=== PATIENT | male | born 1980 | race African-American/Black ===

== ENCOUNTER 2017-01-23 22:07 | Emergency (ER) | payer OTHER, SELFPAY ==
[~2017-01-23] VITALS: Ht 167.6 cm; Wt 57.6 kg
[2017-01-23 22:08] VITALS: BP 119/67
[2017-01-23] MEDS ORDERED: Norco 5mg/325mg tab ORAL ONE (22:45)
[2017-01-23 22:48] LABS: APPEARANCE,URINE CLEAR; KETONES,URINE NEGATIVE (NEGATIVE); LEUKOCYTE ESTERASE ,URINE NEGATIVE (NEGATIVE); NITRITE,URINE NEGATIVE (NEGATIVE); PH,URINE 7 (4.5-8.0); PROTEIN,URINE 3+ (NEGATIVE); UROBILINOGEN,URINE 8 MG/DL (0.0-1.0)
[2017-01-23 23:00] LABS: RBC,URINE 0-2 /HPF (0 - 0)
[2017-01-23 23:01] LABS: WBC,URINE 0 /HPF (0 - 0)
--- NOTE | 2017-01-23 23:06 | Emergency Room Report ---
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 He has previous left shoulder surgery. He presents with chief complaint of generalized body pain and shoulder pain. Pain is 10 out of 10. He said is out of his medication. Denies any fever chills denies any nausea vomiting. Nothing made it better. Any movement made it worse Allergies: Coded Allergies: ASPIRIN (Verified Allergy, Unknown, 12/17/09) MORPHINE (Verified Allergy, Unknown, 12/17/09) PENICILLINS (Verified Allergy, Unknown, 12/17/09) SULFA (SULFONAMIDE ANTIBIOTICS) (Verified Allergy, Unknown, 12/17/09) Patient History Past Medical History: see triage record, old chart reviewed Past Surgical History: other Pertinent Family History: none Social History: Denies: smoking Immunizations: other Reviewed Nursing Documentation: PMH: Agreed, PSxH: Agreed Review of Systems Eye: Denies: blurred vision, eye pain ENT: Denies: ear pain, nose congestion, throat swelling Respiratory: Denies: cough, shortness of breath Cardiovascular: Denies: chest pain, palpitations Gastrointestinal: Denies: abdominal pain, diarrhea, nausea, vomiting Musculoskeletal: Reports: joint pain, Denies: back pain Skin: Denies: rash Neurological: Denies: headache, numbness Endocrine: Denies: increased thirst, increased urine Hematologic/Lymphatic: Denies: easy bruising All Other Systems: negative except mentioned in HPI Physical Exam Vital Signs Date Time Temp Pulse Resp B/P Pulse Ox O2 Delivery O2 Flow Rate FiO2 01/23/17 21:55 98.8 84 18 119/67 98 vitals normal Sp02 EP Interpretation: reviewed, normal General Appearance: Chronically Ill Head: normocephalic, atraumatic Eyes: bilateral eye EOMI, bilateral eye PERRL ENT: hearing grossly normal, normal pharynx Neck: full range of motion, supple, no meningismus Respiratory: chest non-tender, lungs clear, normal breath sounds Cardiovascular #1: regular rate, rhythm, no murmur Gastrointestinal: normal bowel sounds, non tender, no mass, no organomegaly, no bruit, non-distended Musculoskeletal: back normal, other - Patient is screaming in pain with any touch of his body. Neurologic: alert, oriented x3 Psychiatric: mood/affect normal Skin: warm/dry Medical Decision Making Diagnostic Impression: Primary Impression: Sickle cell anemia with crisis Additional Impressions: Sickle cell anemia Qualified Codes: D57.00 - Hb-SS disease with crisis, unspecified Opioid dependence Qualified Codes: F11.20 - Opioid dependence, uncomplicated ER Course Patient presents with sickle cell pain. No evidence of aplastic crisis. I spoke with the doctor at [facility]. His hemoglobin on January 19 was 7.9. In the month of December he has 6 different narcotic prescription from 6 different providers. He also been to several different hospitals. I suspect a strong opioid dependency here. No evidence of infection or aplastic crisis. Anemia is at baseline. No need for emergent blood transfusion. He complaining of shoulder pain requiring surgery. This can be done as an outpatient. no evidence of active bleeding or dehydration. Patient sleeping comfortably. Every time I walk by he start complaining of pain. Lab Results Impression labs unremarkable Last Vital Signs Date Time Temp Pulse Resp B/P Pulse Ox O2 Delivery O2 Flow Rate FiO2 01/23/17 21:55 98.8 84 18 119/67 98 Status: improved Disposition: HOME, SELF-CARE Condition: Stable Additional Instructions: followup with your Dr. in 7 days. Return for worsening symptoms. followup your DrBetty for refills on your medication. LIZZIE THOMAS M.D. Jan 23, 2017 23:06
[2017-01-23 23:38] LABS: BASOPHILS % (AUTO) 0.9 % (0.0-2.0); LYMPHOCYTES % (AUTO) 54.7 % (20.0-45.0); MEAN CORPUSCULAR HEMOGLOBIN 34.6 PG (27.0-31.0); MEAN CORPUSCULAR HGB CONC 33.6 G/DL (32.0-36.0); MEAN CORPUSCULAR VOLUME 103 FL (80-99); MEAN PLATELET VOLUME 6.7 FL (6.5-10.1); MONOCYTES % (AUTO) 6.2 % (1.0-10.0); NEUTROPHILS % (AUTO) 37.2 % (45.0-75.0); PLATELET COUNT 275 K/UL (150-450); RED BLOOD COUNT 2.92 M/UL (4.70-6.10); RED CELL DISTRIBUTION WIDTH 20.5 % (11.6-14.8); WHITE BLOOD COUNT 13.8 K/UL (4.8-10.8)
[2017-01-23] MEDS ORDERED: IBUPROFEN600 MG ORAL (23:44)
[2017-01-23 23:48] VITALS: BP 123/71
[2017-01-24 00:37] LABS: RETICULOCYTE COUNT 14.5 % (0.0-2.0)
== END 2017-01-23 23:48 | disposition home or self-care (01) ==
LOC: EDBD 22:07 → EMR 22:22
DX: D57.00 Hb-SS disease with crisis, unspecified (principal); F11.20 Opioid dependence, uncomplicated; Z88.6 Allergy status to analgesic agent; Z88.2 Allergy status to sulfonamides; Z88.0 Allergy status to penicillin
CPT/HCPCS: 36415; 80300; 81003; 85025; 85044; 99282

== ENCOUNTER 2017-06-05 15:47 | Emergency (ER) | payer OTHER ==
[~2017-06-05] VITALS: Ht 170.2 cm; Wt 68.0 kg
[~2017-06-05 15:47] MED LIST: IBUPROFEN600 MG ORAL
[2017-06-05 16:47] LABS: BASOPHILS % (AUTO) 1.1 % (0.0-2.0); EOSINOPHILS % (AUTO) 0.4 % (0.0-3.0); LYMPHOCYTES % (AUTO) 50.7 % (20.0-45.0); MEAN CORPUSCULAR HEMOGLOBIN 37.6 PG (27.0-31.0); MEAN CORPUSCULAR HGB CONC 34.9 G/DL (32.0-36.0); MEAN CORPUSCULAR VOLUME 108 FL (80-99); MEAN PLATELET VOLUME 7.3 FL (6.5-10.1); MONOCYTES % (AUTO) 4.6 % (1.0-10.0); NEUTROPHILS % (AUTO) 43.2 % (45.0-75.0); PLATELET COUNT 270 K/UL (150-450); RED BLOOD COUNT 2.22 M/UL (4.70-6.10); RED CELL DISTRIBUTION WIDTH 19.1 % (11.6-14.8); WHITE BLOOD COUNT 16.2 K/UL (4.8-10.8)
[2017-06-05] MEDS: Norco 10mg/325mg tab ORAL ONE (17:07)
[2017-06-05 17:17] LABS: ANION GAP 11 mmol/L (5-15); CARBON DIOXIDE 20 MMOL/L (21-32); CHLORIDE 108 MMOL/L (98-107); CREATININE 0.8 MG/DL (0.55-1.30); GLOMERULAR FILTRATION RATE > 60 mL/min (>60); POTASSIUM 5.4 MMOL/L (3.5-5.1); SODIUM 139 MMOL/L (136-145)
[2017-06-05 17:27] LABS: ALANINE AMINOTRANSFERASE 84 U/L (12-78); ALBUMIN/GLOBULIN RATIO 0.9 (1.0-2.7); ASPARTATE AMINO TRANSFERASE 133 U/L (15-37); TOTAL PROTEIN 7.6 G/DL (6.4-8.2)
[2017-06-05 17:28] LABS: ACETAMINOPHEN < 10 MCG/ML (10-30); ALCOHOL < 3 mg/dL
[2017-06-05 17:31] LABS: BILIRUBIN,DIRECT < 0.1 MG/DL (0.0-0.3)
[2017-06-05] MEDS ORDERED: ZYPREXA10 MG ORAL (17:37)
[2017-06-05] MEDS ORDERED: SEROQUEL200 MG ORAL (17:37)
[2017-06-05] MEDS ORDERED: HYDREA500 MG PO (17:37)
[2017-06-05] MEDS ORDERED: FOLIC ACID1 MG ORAL (17:37)
[2017-06-05 18:00] VITALS: BP 147/85
--- NOTE | 2017-06-05 18:20 | Emergency Room Report ---
History of Present Illness General Chief Complaint: Pain Source: Patient Present Illness HPI The patient is a 37-year-old male with a history of schizophrenia and sickle cell disease presenting for total body pain. He states that pain has been ongoing for the past month. He states that he was initially to be admitted at another hospital due to anemia one month prior but he left for a cigarette break and was told he could not return. He is now having total body pain described as a 10 out of 10 dull ache. Worse with movement. He states that this is typical for his sickle cell crisis. He also admits to some shortness of breath. He states that he is taking all medications as prescribed including temazepam, Hydrea, gabapentin, Seroquel, and Abilify. He denies other symptoms including nausea, vomiting, fever, chills, cough, rash , diarrhea, dizziness Allergies: Coded Allergies: ASPIRIN (Verified Allergy, Unknown, 12/17/09) MORPHINE (Verified Allergy, Unknown, 12/17/09) PENICILLINS (Verified Allergy, Unknown, 12/17/09) SULFA (SULFONAMIDE ANTIBIOTICS) (Verified Allergy, Unknown, 12/17/09) Uncoded Allergies: PENICILLIN (Allergy, Unknown, 06/05/17) SULFA (Allergy, Unknown, 06/05/17) Patient History Past Medical History: see triage record Pertinent Family History: none Reviewed Nursing Documentation: PMH: Agreed, PSxH: Agreed Nursing Documentation-PMH Past Medical History: No History, Except For History Of Psychiatric Problem: Yes - Schizophrenia Review of Systems All Other Systems: negative except mentioned in HPI Physical Exam Vital Signs Date Time Temp Pulse Resp B/P (MAP) Pulse Ox O2 Delivery O2 Flow Rate FiO2 06/05/17 15:43 98.6 84 16 140/80 100 Room Air Sp02 EP Interpretation: reviewed, normal General Appearance: no apparent distress, alert, GCS 15, non-toxic Head: normocephalic Eyes: bilateral eye normal inspection, bilateral eye PERRL ENT: hearing grossly normal, normal pharynx, no angioedema, normal voice Neck: full range of motion, no bony tend, supple/symm/no masses Respiratory: chest non-tender, lungs clear, normal breath sounds, speaking full sentences Cardiovascular #1: regular rate, rhythm, no edema Gastrointestinal: normal bowel sounds, soft, no mass, non-distended Musculoskeletal: digits/nails normal, normal range of motion, pelvis stable, other - L shoulder surgical scar Neurologic: alert, oriented x3, responsive, sensory intact Psychiatric: judgement/insight normal, memory normal, mood/affect normal, no suicidal/homicidal ideation Skin: normal color, no rash, warm/dry, well hydrated Medical Decision Making PA Attestation Dr. Jones is my supervising physician. Patient management was discussed with my supervising physician Diagnostic Impression: Primary Impression: Sickle cell anemia with pain ER Course The patient is a 37-year-old male with a history of schizophrenia and sickle cell disease presenting for total body pain Differential diagnoses considered include but not limited to sickle cell crisis , anemia, gastritis, pancreatitis, appendicitis, among others PE: Vitals stable. Afebrile. NAD RRR Lungs CTA bilat Skin warm and dry. Abd is soft and non tender. Non distended. No guarding. No ecchymosis. The patient has leukocytosis consistent with all previous labs. Hemoglobin and hematocrit shows anemia. Levels are decreased compared to previous labs. Retic count elevated AST/ALT and alk phos elevated Hyperkalemia at 5.4 Dr. Jones has spoken with Dr. Lo who will be admitting the patient for transfer EKG and CXR unremarkable The patient is given IV fluids and pain medication and states that he is feeling much better. He was more relaxed. He'll be transferred in serious but stable condition Laboratory Tests Test 06/05/17 16:35 White Blood Count 16.2 K/UL (4.8-10.8) H Red Blood Count 2.22 M/UL (4.70-6.10) L Hemoglobin 8.4 G/DL (14.2-18.0) L Hematocrit 24.0 % (42.0-52.0) L Mean Corpuscular Volume 108 FL (80-99) H Mean Corpuscular Hemoglobin 37.6 PG (27.0-31.0) H Mean Corpuscular Hemoglobin Concent 34.9 G/DL (32.0-36.0) Red Cell Distribution Width 19.1 % (11.6-14.8) H Platelet Count 270 K/UL (150-450) Mean Platelet Volume 7.3 FL (6.5-10.1) Neutrophils (%) (Auto) 43.2 % (45.0-75.0) L Lymphocytes (%) (Auto) 50.7 % (20.0-45.0) H Monocytes (%) (Auto) 4.6 % (1.0-10.0) Eosinophils (%) (Auto) 0.4 % (0.0-3.0) Basophils (%) (Auto) 1.1 % (0.0-2.0) Reticulocyte Count 8.1 % (0.0-2.0) H Sodium Level 139 MMOL/L (136-145) Potassium Level 5.4 MMOL/L (3.5-5.1) H Chloride Level 108 MMOL/L (98-107) H Carbon Dioxide Level 20 MMOL/L (21-32) L Anion Gap 11 mmol/L (5-15) Blood Urea Nitrogen 18 mg/dL (7-18) Creatinine 0.8 MG/DL (0.55-1.30) Estimate Glomerular Filtration Rate > 60 mL/min (>60) Glucose Level 115 MG/DL (74-106) H Calcium Level 9.0 MG/DL (8.5-10.1) Total Bilirubin 1.6 MG/DL (0.2-1.0) H Direct Bilirubin < 0.1 MG/DL (0.0-0.3) Aspartate Amino Transferase (AST) 133 U/L (15-37) H Alanine Aminotransferase (ALT) 84 U/L (12-78) H Alkaline Phosphatase 447 U/L (46-116) H Troponin I 0.001 ng/mL (0.000-0.056) Total Protein 7.6 G/DL (6.4-8.2) Albumin 3.5 G/DL (3.4-5.0) Globulin 4.1 g/dL Albumin/Globulin Ratio 0.9 (1.0-2.7) L Salicylates Level < 0.2 ug/mL (2.8-20) L Urine Opiates Screen Positive (NEGATIVE) H Acetaminophen Level < 10 MCG/ML (10-30) L Urine Barbiturates Screen Negative (NEGATIVE) Phencyclidine (PCP) Screen Negative (NEGATIVE) Urine Amphetamines Screen Negative (NEGATIVE) Urine Benzodiazepines Screen Negative (NEGATIVE) Urine Cocaine Screen Negative (NEGATIVE) Urine Marijuana (THC) Screen Negative (NEGATIVE) Serum Alcohol < 3 mg/dL Lab Results Impression The patient has leukocytosis consistent with all previous labs. Hemoglobin and hematocrit shows anemia. Levels are decreased compared to previous labs. Retic count elevated AST/ALT and alk phos elevated Hyperkalemia at 5.4 EKG Diagnostic Results EP Interpretation: NSR, no acute changes Rate: normal - 82 Rhythm: NSR ST Segments: other ASA given to the pt in ED: No PA Scribe Text EKG was reviewed and read with my supervising physician. No acute ST segment changes are seen. Normal rate and rhythm. No acute changes. Chest X-Ray Diagnostic Results Chest X-Ray Diagnostic Results : Chest X-Ray Ordered: Yes # of Views/Limited/Complete: 1 View Indication: Chest Pain EP Interpretation: Yes PA Xray: Interpretation reviewed, by supervising MD, and agrees with findings. Interpretation: no consolidation, no effusion, no pneumothorax, no acute cardiopulmonary disease Impression: No acute disease Electronically Signed by: David York PA-C Last Vital Signs Date Time Temp Pulse Resp B/P (MAP) Pulse Ox O2 Delivery O2 Flow Rate FiO2 06/05/17 15:43 98.6 84 16 140/80 100 Room Air Status: improved Disposition: XFER SHT-TRM HOSP Condition: Serious Referrals: [facility],REFERR[facility] (PCP) DAVID YORK Jun 05, 2017 18:20
[2017-06-05] MEDS: HYDROmorphone 1mg/ml Carpuject IVP ONE (18:29)
[2017-06-05 19:17] LABS: RETICULOCYTE COUNT 8.1 % (0.0-2.0)
[2017-06-05 20:18] VITALS: BP 144/49
[2017-06-05 20:20] VITALS: BP 144/49
--- NOTE | 2017-06-06 08:35 | Diagnostic Imaging Report ---
Indication: Chest pain Technique: XRAY Chest 1v Comparison: None Findings: Heart appears borderline enlarged evaluation is limited due to AP technique. There is linear opacity at the left base which likely represents atelectasis and/or scarring. Otherwise there is no focal consolidation, pleural effusion or pneumothorax. Patient is status post left shoulder arthroplasty. Sclerosis in the right humeral head may be reflective of avascular necrosis. Impression: Linear opacity at the left base most likely representing atelectasis and/or scarring. Otherwise, no focal consolidation, pleural effusion or pneumothorax. Left shoulder arthroplasty. 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 Correlate clinically.
--- NOTE | 2017-06-07 14:30 | Cardiology Report ---
APPROVED REPORT EKG Measurement Heart [id number] Normal sinus rhythm Normal ECG
== END 2017-06-05 20:20 | disposition short-term general hospital (02) ==
LOC: EDBD 15:47 → EMR 16:34 → EDBEDREQ 17:00 → EMR 20:20
DX: D57.00 Hb-SS disease with crisis, unspecified (principal); F20.9 Schizophrenia, unspecified; Z88.2 Allergy status to sulfonamides; Z88.0 Allergy status to penicillin
CPT/HCPCS: 36415; 71010; 80053; 80307; 80329; 82248; 84484; 85025; 85044; 93005; 96374; 96375; 99285; J1170

== ENCOUNTER 2017-09-14 03:16 | Emergency (ER) | payer OTHER ==
[~2017-09-14] VITALS: Ht 167.6 cm; Wt 67.1 kg
[~2017-09-14 03:16] MED LIST changes: +FOLIC ACID1 MG ORAL; +HYDREA500 MG PO; +SEROQUEL200 MG ORAL; +ZYPREXA10 MG ORAL
[2017-09-14] MEDS ORDERED: NKM (03:26)
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
[2017-09-14 04:15] VITALS: BP 122/77
[2017-09-14 05:15] VITALS: BP 118/74
[2017-09-14 05:28] LABS: HEMATOCRIT 21.4 % (42.0-52.0); HEMOGLOBIN 7.6 G/DL (14.2-18.0); MEAN CORPUSCULAR VOLUME 93 FL (80-99); PLATELET COUNT 171 K/UL (150-450); RED BLOOD COUNT 2.31 M/UL (4.70-6.10); RED CELL DISTRIBUTION WIDTH 14.5 % (11.6-14.8); WHITE BLOOD COUNT 15.5 K/UL (4.8-10.8)
[2017-09-14 05:41] LABS: ANION GAP 8 mmol/L (5-15); BLOOD UREA NITROGEN 32 mg/dL (7-18); CALCIUM 8.1 MG/DL (8.5-10.1); CARBON DIOXIDE 26 MMOL/L (21-32); CHLORIDE 106 MMOL/L (98-107); SODIUM 140 MMOL/L (136-145)
[2017-09-14 05:52] LABS: ALANINE AMINOTRANSFERASE 74 U/L (12-78); ALBUMIN 3.4 G/DL (3.4-5.0); ALKALINE PHOSPHATASE 423 U/L (46-116); ASPARTATE AMINO TRANSFERASE 119 U/L (15-37); BILIRUBIN,TOTAL 2.6 MG/DL (0.2-1.0)
[2017-09-14 05:58] LABS: BILIRUBIN,DIRECT 1.2 MG/DL (0.0-0.3)
[2017-09-14 06:15] VITALS: BP 116/72
[2017-09-14] MEDS ORDERED: HYDROmorphone 1mg/ml Carpuject IVP ONE (08:15)
[2017-09-14 08:22] VITALS: BP 116/72
--- NOTE | 2017-09-14 10:43 | Diagnostic Imaging Report ---
Indication: Pain Technique: One view of the chest Comparison: 06/05/2017 Findings: Left shoulder hemiarthroplasty prosthesis again demonstrated. There is some stable linear scarring at the left lung base. The lungs pleural spaces otherwise clear. Heart size is upper limits of normal. There is diffuse mild osseous sclerosis again demonstrated Impression: No acute process. Stable findings as described
== END 2017-09-14 08:39 | disposition short-term general hospital (02) ==
LOC: EDUNIT# 03:16 → EDBD 03:16 → EMR 03:38
DX: D57.1 Sickle-cell disease without crisis (principal); D64.9 Anemia, unspecified; Z88.6 Allergy status to analgesic agent; Z88.0 Allergy status to penicillin; Z88.2 Allergy status to sulfonamides
CPT/HCPCS: 36415; 71045; 80053; 82248; 83615; 84484; 85007; 85025; 85044; 85610; 85730; 96374; 96375; 99284; J1170

== ENCOUNTER 2019-12-11 16:41 | Emergency (ER) | payer MEDICAID, OTHER ==
[~2019-12-11] VITALS: Ht 170.2 cm; Wt 61.2 kg
[~2019-12-11 16:41] MED LIST changes: +NKM
[2019-12-11 16:55] VITALS: BP 111/66
[2019-12-11] MEDS ORDERED: HYDROmorphone 1mg/NS 50ml IVPB 50 ML IVPB ONE (17:15)
[2019-12-11] MEDS ORDERED: HYDROmorphone 1 MG in NS 55 ML IV ONE ×2 (17:30→18:00)
--- NOTE | 2019-12-11 17:46 | Diagnostic Imaging Report ---
EXAM: XR Chest, 1 View CLINICAL HISTORY: SOB TECHNIQUE: Frontal view of the chest. COMPARISON: None available FINDINGS: Hardware: None. Lungs/pleura: Probable mild left basilar atelectasis. No focal consolidation. No pleural effusion or pneumothorax. Heart/mediastinum: Normal. No cardiomegaly. Soft tissues: Unremarkable. Bones: No acute fracture. Left shoulder arthroplasty partially visualized. Degenerative changes of the right shoulder. Upper abdomen: Normal. IMPRESSION: Probable left basilar atelectasis. No acute disease identified.
[2019-12-11] MEDS ORDERED: HYDROmorphone 1mg/ml Carpuject IM ONE ×2 (18:00→18:15)
[2019-12-11 18:05] LABS: HEMATOCRIT 27.4 % (42.0-52.0); HEMOGLOBIN 8.9 G/DL (14.2-18.0); MEAN CORPUSCULAR VOLUME 115 FL (80-99); PLATELET COUNT 225 K/UL (150-450); RED BLOOD COUNT 2.37 M/UL (4.70-6.10); RED CELL DISTRIBUTION WIDTH 17.6 % (11.6-14.8); WHITE BLOOD COUNT 19.2 K/UL (4.8-10.8)
[2019-12-11 18:14] LABS: ANION GAP 11 mmol/L (5-15); BLOOD UREA NITROGEN 10 mg/dL (7-18); CALCIUM 8.7 MG/DL (8.5-10.1); CARBON DIOXIDE 24 MMOL/L (21-32); CHLORIDE 108 MMOL/L (98-107); CREATININE 0.9 MG/DL (0.55-1.30); SODIUM 143 MMOL/L (136-145)
--- NOTE | 2019-12-11 18:23 | Emergency Room Report ---
History of Present Illness General Chief Complaint: Pain Source: Patient Present Illness HPI 39-year-old male with history of sickle cell disease here complaining of a 10 out of 10 pain all over. Patient reports that he was admitted to [facility] few days ago and was kicked out of the hospital by police as patient does not recall why. Patient appears to be rude to the staff. Patient reports that he never took any hydromorphone at home colitis for the past several years and just got back to [place] however based on cures patient just received hydromorphone on 29 November. Patient reports that there must of been identified. Drug-seeking behavior has been noticed. Denies any chest pain, fever and chills , shortness of breath and headache at this time. Vital signs are stable. Patient reports that he has not seen a specialist for his sickle cell in many years. Denies drug use, tobacco smoke, alcohol intake. Patient shows me a prescription for p.o. hydromorphone at home that was given to him on 07 December by physician [facility] however patient has his own handwriting for reports that he was never filled as the pharmacy did not allow him to fill it. Allergies: Coded Allergies: ASPIRIN (Verified Allergy, Unknown, 12/17/09) MORPHINE (Verified Allergy, Unknown, 12/17/09) PENICILLINS (Verified Allergy, Unknown, 12/17/09) SULFA (SULFONAMIDE ANTIBIOTICS) (Verified Allergy, Unknown, 12/17/09) COVID-19 Screening Contact w/high risk pt: No Recent Travel to affected area: No Experienced COVID-19 symptoms?: No COVID-19 symptoms experienced: Runny Nose COVID-19 Testing performed CAD APPLICATION SUPPORT SPECIALIST: No - 12/09/2019 COVID-19 Screening: Negative COVID-19 COVID-19 Testing Source: nasopharyngeal Patient History Past Medical History: see triage record Past Surgical History: none Pertinent Family History: none Immunizations: UTD Reviewed Nursing Documentation: PMH: Agreed; PSxH: Agreed Nursing Documentation-PMH Past Medical History: No History, Except For Review of Systems All Other Systems: negative except mentioned in HPI Physical Exam Vital Signs Date Time Temp Pulse Resp B/P (MAP) Pulse Ox O2 Delivery O2 Flow Rate FiO2 12/11/19 16:42 98.4 17 111/66 (81) 98 Room Air Sp02 EP Interpretation: reviewed, normal General Appearance: mild distress Head: normocephalic, atraumatic Eyes: bilateral eye normal inspection, bilateral eye PERRL ENT: hearing grossly normal, normal pharynx, no angioedema, normal voice Neck: full range of motion, supple, thyroid normal, no meningismus, supple/symm /no masses Respiratory: chest non-tender, lungs clear, normal breath sounds, speaking full sentences Cardiovascular #1: no edema Cardiovascular #2: 2+ carotid (R), 2+ carotid (L), 2+ radial (R), 2+ radial (L) Gastrointestinal: normal bowel sounds, non tender, soft, non-distended, no guarding, no rebound Rectal: deferred Genitourinary: no CVA tenderness Musculoskeletal: back normal, no calf tenderness Neurologic: alert, motor strength/tone normal, oriented x3, sensory intact, responsive, speech normal Psychiatric: judgement/insight normal, memory normal, mood/affect normal, no suicidal/homicidal ideation Skin: no rash Lymphatic: no adenopathy Medical Decision Making PA Attestation All my diagnosis and treatment plans were reviewed ad discussed with my supervising physician Dr. Schroeder Diagnostic Impression: Primary Impression: Sickle-cell disease with pain ER Course 39-year-old male with history of sickle cell disease here complaining of a 10 out of 10 pain all over. Patient reports that he was admitted to [facility] few days ago and was kicked out of the hospital by police as patient does not recall why. Patient appears to be rude to the staff. Patient reports that he never took any hydromorphone at home colitis for the past several years and just got back to [place] however based on cures patient just received hydromorphone on 29 November. Patient reports that there must of been identified. Drug-seeking behavior has been noticed. Denies any chest pain, fever and chills , shortness of breath and headache at this time. Vital signs are stable. Patient reports that he has not seen a specialist for his sickle cell in many years. Denies drug use, tobacco smoke, alcohol intake.Patient shows me a prescription for p.o. hydromorphone at home that was given to him on 07 December by physician [facility] however patient has his own handwriting for reports that he was never filled as the pharmacy did not allow him to fill it. Ddx considered but are not limited to: CA, Angina, COPD, GERD, sickle cell crisis, sickle cell pain Vital signs: are WNL, pt. is afebrile H&PE are most consistent with sickle cell disease with pain ORDERS: reticulocyte count, CBC, CMP, PT and PTT, UA, tox screen, troponin, chest x-ray ED INTERVENTIONS: a line could not get started was able to administer IM hydromorphone DISCHARGE: At this time pt. is stable for d/c to home. Will provide printed patient care instructions, and any necessary prescriptions. Care plan and follow up instructions have been discussed with the patient prior to discharge. Follow-up with your rippler, at this time no more hydromorphone can be prescribed to as you need to establish a primary care provider and to be sent to rippler and pain management. If worsening symptoms return to the emergency room. Patient had to be escorted out by security as refused to leave he kept arguing with me that he cannot have a primary doctor as he used to have primary doctor when he was a child and has not been able to establish one for the past 20+ years. Patient reports that he keeps going from state to state and reports that he is going from hospital to hospital in order to get pain medication and be admitted. Patient does not allow me to speak as I am explaining to him that he needs to have a primary doctor for referral to pain management and rippler. Chest X-Ray Diagnostic Results Chest X-Ray Diagnostic Results : Chest X-Ray Ordered: Yes # of Views/Limited/Complete: 1 View Indication: Other EP Interpretation: Yes XENA Xray: Interpretation reviewed, by supervising MD, and agrees with findings. Interpretation: no consolidation, no effusion, no pneumothorax Impression: No acute disease Electronically Signed by: Daysi Ann PA-C Last Vital Signs Date Time Temp Pulse Resp B/P (MAP) Pulse Ox O2 Delivery O2 Flow Rate FiO2 12/11/19 16:55 98.4 17 111/66 98 Room Air Disposition: HOME, SELF-CARE Condition: Stable Scripts Acetaminophen* (TYLENOL EXTRA STRENGTH*) 500 Mg Tablet 500 MG ORAL Q8H PRN for Prn Headache/Temp > 101, #30 TAB 0 Refills Prov: Daysi Macdonald 12/11/19 Referrals: NOT CHOSEN IPA/MD,REFERRING (PCP) Patient Instructions: Sickle Cell Anemia, Adult, [id number] Additional Instructions: Follow-up with your rippler, at this time no more hydromorphone can be prescribed to as you need to establish a primary care provider and to be sent to rippler and pain management. If worsening symptoms return to the emergency room. Daysi Macdonald Dec 11, 2019 18:23
[2019-12-11 18:25] LABS: ALANINE AMINOTRANSFERASE 53 U/L (12-78); ALBUMIN 3.6 G/DL (3.4-5.0); ALBUMIN/GLOBULIN RATIO 1.1 (1.0-2.7); ALKALINE PHOSPHATASE 388 U/L (46-116); ASPARTATE AMINO TRANSFERASE 102 U/L (15-37); BILIRUBIN,TOTAL 1.9 MG/DL (0.2-1.0)
[2019-12-11 18:26] LABS: BILIRUBIN,DIRECT 0.6 MG/DL (0.0-0.3)
[2019-12-11 18:34] LABS: APPEARANCE,URINE CLEAR; BILIRUBIN, URINE NEGATIVE (NEGATIVE); GLUCOSE, URINE (UA) NEGATIVE (NEGATIVE); KETONES,URINE NEGATIVE (NEGATIVE); LEUKOCYTE ESTERASE ,URINE NEGATIVE (NEGATIVE); NITRITE,URINE NEGATIVE (NEGATIVE); PH,URINE 7 (4.5-8.0); PROTEIN,URINE 3+ (NEGATIVE); UROBILINOGEN,URINE 8 MG/DL (0.0-1.0)
[2019-12-11 18:41] LABS: COLOR,URINE YELLOW
[2019-12-11] MEDS ORDERED: TYLENOL EXTRA500 MG ORAL (18:45)
[2019-12-11 18:55] VITALS: BP 115/66
== END 2019-12-11 18:55 | disposition home or self-care (01) ==
LOC: EMR 17:23
DX: D57.00 Hb-SS disease with crisis, unspecified (principal); Z88.6 Allergy status to analgesic agent; Z88.0 Allergy status to penicillin; Z88.2 Allergy status to sulfonamides
CPT/HCPCS: 36415; 71045; 80053; 80307; 81003; 82248; 83880; 84484; 85007; 85025; 85044; 85610; 85730; 96372; J1170; Z7502; 99283

== ENCOUNTER 2020-04-15 05:21 | Emergency (ER) | payer MEDICAID, OTHER ==
[~2020-04-15] VITALS: Ht 170.2 cm; Wt 68.0 kg
[~2020-04-15 05:21] MED LIST changes: +TYLENOL EXTRA500 MG ORAL
[2020-04-15] MEDS ORDERED: HYDROmorphone 1mg/ml Carpuject ONE (05:34)
--- NOTE | 2020-04-15 05:35 | Emergency Room Report ---
History of Present Illness General Chief Complaint: Pain Source: Patient Present Illness HPI Is a 40-year-old male with a history of sickle cell SC with multiple crisis in the past. He presents with chief complaint of sickle cell pain. Onset for 1 day. Pain to lower extremities. 10 out of 10. No fever chills no trauma. He said he just moved back from [place]. Last time he went to the ER was about a month ago. He denies any other complaint. Out of his Percocet. Allergies: Coded Allergies: ASPIRIN (Verified Allergy, Unknown, 12/17/09) MORPHINE (Verified Allergy, Unknown, 12/17/09) PENICILLINS (Verified Allergy, Unknown, 12/17/09) SULFA (SULFONAMIDE ANTIBIOTICS) (Verified Allergy, Unknown, 12/17/09) COVID-19 Screening Contact w/high risk pt: No Recent Travel to affected area: No Experienced COVID-19 symptoms?: No COVID-19 symptoms experienced: Runny Nose COVID-19 Testing performed MANUFACTURING ADVISOR: No Patient History Past Medical History: see triage record, old chart reviewed Past Surgical History: other Pertinent Family History: none Social History: Denies: smoking Immunizations: other Reviewed Nursing Documentation: PMH: Agreed; PSxH: Agreed Review of Systems Eye: Denies: eye pain, blurred vision ENT: Denies: ear pain, nose congestion, throat swelling Respiratory: Denies: cough, shortness of breath Cardiovascular: Denies: chest pain, palpitations Gastrointestinal: Denies: abdominal pain, diarrhea, nausea, vomiting Musculoskeletal: Reports: joint pain, muscle pain; Denies: back pain Skin: Denies: rash Neurological: Denies: headache, numbness Endocrine: Denies: increased thirst, increased urine Hematologic/Lymphatic: Denies: easy bruising All Other Systems: negative except mentioned in HPI Physical Exam Vital Signs Date Time Temp Pulse Resp B/P (MAP) Pulse Ox O2 Delivery O2 Flow Rate FiO2 04/15/20 05:26 99.5 102 18 125/79 (94) 97 Room Air Vitals normal Sp02 EP Interpretation: reviewed, normal General Appearance: well appearing, no apparent distress, alert Head: normocephalic, atraumatic Eyes: bilateral eye PERRL, bilateral eye EOMI ENT: hearing grossly normal, normal pharynx Neck: full range of motion, supple, no meningismus Respiratory: chest non-tender, lungs clear, normal breath sounds Cardiovascular #1: regular rate, rhythm, no murmur Gastrointestinal: normal bowel sounds, non tender, no mass, no organomegaly, no bruit, non-distended Musculoskeletal: back normal, normal range of motion, other - Patient still has IV alves and tape alves on his upper extremities Neurologic: other - Patient walk with a cane Psychiatric: mood/affect normal Medical Decision Making Diagnostic Impression: Primary Impression: Sickle cell crisis ER Course This patient presents with sickle cell crisis. I suspect drug-seeking behavior. He still has IV alves and tape alves on his upper extremities. On the [facility] system, he has multiple prescription and multiple doctors from multiple addresses. Most of previous addresses were [facility]. Last Vital Signs Date Time Temp Pulse Resp B/P (MAP) Pulse Ox O2 Delivery O2 Flow Rate FiO2 04/15/20 05:26 99.5 102 18 125/79 (94) 97 Room Air Status: improved Disposition: HOME, SELF-CARE Condition: Stable Additional Instructions: Follow-up with your doctor for refill your medication. Follow-up your doctor in 7 days. Follow-up with pain clinic. Return if symptoms worsen. Anton Zuniga MD Apr 15, 2020 05:35
[2020-04-15] MEDS ORDERED: HYDROmorphone 1mg/ml Carpuject IM ONE (05:45)
[2020-04-15 06:00] VITALS: BP 125/79
== END 2020-04-15 06:15 | disposition home or self-care (01) ==
LOC: EDBD 05:21 → EMR 05:32
DX: D57.00 Hb-SS disease with crisis, unspecified (principal); Z88.0 Allergy status to penicillin; Z88.2 Allergy status to sulfonamides; Z88.6 Allergy status to analgesic agent
CPT/HCPCS: 96372; J1170; Z7502; 99283